=== PATIENT | male | born 1965 | race Caucasian/White ===

== ENCOUNTER 2024-04-10 09:10 | Outpatient (CLI) | payer MEDICARE, MEDICAID | END 2024-04-10 23:59 | disposition home or self-care (01) | LOC: RAD 09:10 | PROVIDERS: ATTEND Physician Assistant | DX: R13.14 Dysphagia, pharyngoesophageal phase (principal); R05.9 Cough, unspecified | CPT/HCPCS: 74230 ==

== ENCOUNTER 2025-02-08 06:49 | Day surgery (SDC) | payer MEDICARE, MEDICAID ==
[~2025-02-08] VITALS: Ht 172.7 cm; Wt 92.5 kg
[2025-02-08] MEDS ORDERED: ATOR20TA66 PO (07:28)
[2025-02-08] MEDS ORDERED: FOLI1TAB27 PO (07:28)
[2025-02-08] MEDS ORDERED: MIDO5TAB4 (07:28)
[2025-02-08] MEDS ORDERED: PANT40TA54 PO (07:28)
[2025-02-08] MEDS ORDERED: GABA300T28 (07:28)
[2025-02-08] MEDS ORDERED: LEVE750T PO (07:28)
[2025-02-08] MEDS ORDERED: QUET300T20 PO (07:28)
[2025-02-08] MEDS ORDERED: DIVA-134 PO (07:28)
[2025-02-08] MEDS ORDERED: LEVO112T5 PO (07:28)
[2025-02-08 07:36] VITALS: BP 119/62; PULSE 110; TEMP 98.4; O2SAT 96
== END 2025-02-08 08:08 | disposition home or self-care (01) ==
LOC: SSTAY O 06:49
PROVIDERS: ATTEND Surgery
DX: J90 Pleural effusion, not elsewhere classified (principal); Z53.8 Procedure and treatment not carried out for other reasons
CPT/HCPCS: 76604; C1729